=== PATIENT | female | born 1955 | race Two or more races ===

== ENCOUNTER → 2018-12-03 | Outpatient (CLI) | payer MEDICARE, MEDICAID ==
--- NOTE | 2018-12-03 09:55 | RADIOLOGY REPORT (SQ) ---
EXAM DESCRIPTION: CAROTID DOPPLER COMPLETED DATE/TIME: 12/03/2018 8:25 am REASON FOR STUDY: PARESTHESIA OF SKIN R20.2 PARESTHESIA OF SKIN COMPARISON: None. TECHNIQUE: Grayscale ultrasound, Doppler velocity and spectra, and color Doppler images acquired of the extra-cranial carotid and vertebral arteries. Images stored on PACS. LIMITATIONS: None. FINDINGS: RIGHT CAROTID CCA Velocities: Within normal limits. ICA Velocities Peak systolic 0.76 m/s. End diastolic 0.32 m/s. Proximal ICA/CCA peak systolic ratio normal. Spectra normal. No significant plaque. LEFT CAROTID CCA Velocities: Within normal limits. ICA Velocities Peak systolic 0.54 m/s. End diastolic 0.22 m/s. Proximal ICA/CCA peak systolic ratio normal. Spectra normal. No significant plaque. VERTEBRAL ARTERIES: Antegrade flow. Normal waveforms. SUBCLAVIAN ARTERIES: Not evaluated OTHER: No other significant finding. IMPRESSION: NO HEMODYNAMICALLY SIGNIFICANT STENOSIS. COMMENT: Quality ID #[id number]: Velocity criteria are extrapolated from the diameter data as defined by t he Society of Radiologists in Ultrasound Consensus Conference. Radiology 2003: 229; 340-346. TECHNICAL DOCUMENTATION: JOB ID: [id number]- All Rights Reserved Reading location - IP/workstation name: [email or web address]
== END ==
LOC: SP 07:45
PROVIDERS: ATTEND Family Medicine
DX: R20.2 Paresthesia of skin (principal)
CPT/HCPCS: 93880

== ENCOUNTER → 2020-05-23 | Outpatient (CLI) | payer MEDICARE, MEDICAID ==
--- NOTE | 2020-05-23 12:25 | RADIOLOGY REPORT (SQ) ---
EXAM DESCRIPTION: MRI LUMBAR SPINE WITHOUT IMAGES COMPLETED DATE/TIME: 05/23/2020 11:23 am REASON FOR STUDY: RADICULOPATHY M54.16 RADICULOPATHY, LUMBAR REGION COMPARISON: None. TECHNIQUE: Sagittal and Axial imaging includes T1, T2, STIR and gradient echo sequences. Coronal T2/ HASTE imaging. LIMITATIONS: None. FINDINGS: VISUALIZED UPPER ABDOMEN: Limited evaluation. No acute or suspicious findings suggested. SEGMENTATION: No transitional anatomy. The lowest well-developed disc space is labeled L5-S1. ALIGNMENT: Anatomic. VERTEBRAE: Intact. BONE MARROW: Normal. No marrow replacement or reactive changes. DISC SIGNAL: Variable signal and height loss. POSTERIOR ELEMENTS: No pars defect evident. Variable facet arthropathy with mild-moderate hypertrop hic overgrowth. HARDWARE: None in the spine. CORD AND CONUS: Normal in size and signal intensity. Conus at the appropriate level. SOFT TISSUES: No aortic aneurysm seen. No bulky retroperitoneal adenopathy or mass. No paraspinal mas s or fluid. L1-L2: No significant spinal stenosis or exit foraminal stenosis. L2-L3: Diminished disc height with broad mild disc bulge. Slight facet arthropathy. No significant central stenosis. Up to moderate bilateral foraminal narrowing. L3-L4: Diminished disc signal. Mild disc bulging. Mild facet arthropathy. No significant central s tenosis. Up to moderate bilateral foraminal stenosis. L4-L5: Diminished disc signal with broad disc bulge indenting the ventral thecal sac. Posterior liga ment thickening and facet overgrowth with slight central narrowing and up to moderate bilateral julian inal stenosis. L5-S1: Loss of the disc space, probable partial ankylosis with mild posterior disc margins spurring w ithout nerve root impingement. Mild facet arthropathy but no suggestion of significant central steno sis. Mild bilateral foraminal narrowing. LOWER THORACIC: Incompletely imaged. No evidence of cord compression or high grade stenosis. SACRUM: Visualized upper sacrum intact. OTHER: No other significant findings. IMPRESSION: 1. Lumbar spondylosis without suggestion of significant central stenosis. Up to moderate multilevel foraminal stenosis. 2. No fracture or worrisome bone lesion or significant spinal malalignment. TECHNICAL DOCUMENTATION: JOB ID: [id number] 2010 [employer]- All Rights Reserved Reading location - IP/workstation name: [email or web address]
--- OUTSIDE RECORDS SUMMARY | 2020-05-25 10:42 | XMS REPORT ---
:1955 [facility] [address] [place] [address] Care Team Providers Name Role Phone Unavailable Unavailable Unavailable Allergies, Adverse Reactions, Alerts This patient has no known allergies or adverse reactions. Medications Ordered Filled Start Stop Current Ordering Indication Dosage Frequency Signature Comments Components Medication Medication Date Date Medication? Clinician (SIG) Name Name pravastatin No pravastati 40 mg n 40 mg tablet tablet tramadol 50 No 1 Q6H tramadol mg tablet 50 mg Take 1 tablet tablet Take 1 every 6 tablet hours by every 6 oral route. hours by oral route. albuterol No albuterol sulf 90 sulf 90 mcg/actuati mcg/actuat on breath ion breath activated activated powder powder inhaler,sen inhaler,se sor nsor amlodipine No amlodipine 10 mg 10 mg tablet tablet cyclobenzap No 1 TID cyclobenza rine 10 mg yeyo 10 tablet Take mg tablet 1 tablet 3 Take 1 times a day tablet 3 by oral times a route as day by needed. oral route as needed. fluticasone No fluticason propionate e 50 propionate mcg/actuati 50 on nasal mcg/actuat spray,suspe ion nasal nsion spray,susp ension Neurontin No Neurontin 600 mg 600 mg tablet tablet pravastatin No pravastati n Problems This patient has no known problems. Procedures Procedure Date / Time Performed Performing Clinician Enrique ROMAN, lumbar spine 2020-04-15 00:00:00 Results This patient has no known results. Assessments Condition Name Status Diagnosis Date Treating Clinici an Low back pain Active 2020-04-15 10:15:44 Lumbar radiculopathy Active 2020-04-15 11:01:17 Encounters Start End Encounter Admission Attending Care Care Encounter Date/Time Date/Time Type Type Clinicians Facility Department ID 2020-04-15 2020-04-15 [facility] [id number] 00:00:00 00:00:00 Oxana Reyez. , P.A[facility] [address] BLANCA Marques: [address] [place] [phone], Ph. Social History Smoking Status Start Date Stop Date Never Smoker Vital Signs Vital Name Observation Time Observation Value Comments Height 2020-04-15 00:00:00 68.5 [in_i] BMI (Body Mass Index) 2020-04-15 00:00:00 36 kg/m2 Body Weight 2020-04-15 00:00:00 240 [lb_av] Hospital Discharge Instructions 1. Low back pain back care and preventing injuries: care instructions getting back to normalafter low back pain: care instructions learning about relief for back pain XR, lumbar spine 2. Lumbar radiculopathy Medrol (Kit) 4 mg tablets in a dose pack tramadol 50 mg tablet cyclobenzaprine 10 mg tablet Discussion Note: None recorded.
== END ==
LOC: RAD 10:35
PROVIDERS: ATTEND Family Medicine
DX: M54.16 Radiculopathy, lumbar region (principal)
CPT/HCPCS: 72148